=== PATIENT | female | born 1975 | race Caucasian/White ===

== ENCOUNTER 2020-03-15 11:54 | Emergency (ER) | payer OTHER, SELFPAY | END 2020-03-15 12:15 | disposition left against medical advice (07) | LOC: EXPCOLL 12:10 | PROVIDERS: PCP Family Medicine | DX: Z53.21 Procedure and treatment not carried out due to patient leaving prior to being seen by health care provider (principal) | CPT/HCPCS: 99199 ==

== ENCOUNTER 2020-03-15 12:28 | Emergency (ER) | payer OTHER, SELFPAY ==
--- NOTE | ~2020-03-15 | CT_ITS ---
EXAMINATION: CT abdomen pelvis wo con DATE: 03/15/2020 13:02 INDICATION: Left flank pain TECHNIQUE: Computed tomography (CT) of the left was performed without intravenous contrast. The dose- length product (DLP) was 559.02 mGy-cm. Automated exposure control and iterative reconstruction techn ique were employed. COMPARISON: None FINDINGS: The lung bases are clear. The heart size is normal. There is a small sliding hiatal hernia. The liver, spleen, pancreas, gallbladder, and adrenal glands are normal. There is a 5 mm stone in th e proximal left ureter which causes mild left hydroureteronephrosis. A 3 mm nonobstructing stone is p resent in the right kidney. No pathologically enlarged abdominal or pelvic lymph nodes are identified . There is no free intraperitoneal gas or evidence of bowel obstruction. There is calcified atheroscl erosis of the aorta and many of the other arteries. The appendix is normal. IMPRESSION: 1. 5 mm stone in the proximal left ureter causing mild left hydroureteronephrosis. 2. Nonobstructing right nephrolithiasis. Reviewed, dictated and finalized at location A. IMPRESSION: 1. 5 mm stone in the proximal left ureter causing mild left hydroureteronephros is. 2. Nonobstructing right nephrolithiasis.
--- NOTE | ~2020-03-15 | XR_ITS ---
EXAMINATION: XR abdomen/kub 1V INDICATION: Left flank pain TECHNIQUE: Supine views of the abdomen were obtained on 2 radiographs. COMPARISON: None FINDINGS: A 7 mm stone projects between the left L3 and L4 transverse processes. The bowel gas patter n is normal. IMPRESSION: 1. 7 mm left proximal ureteral stone corresponding to the CT finding. Reviewed, dictated and finalized at location A.
[2020-03-15 12:59] LABS: Basophils Absolute Auto 0.1 K/mm3 (0.0-0.1); Basophils Percent Auto 0.8 % (0.2-1.2); Eosinophils Absolute Auto 0.1 K/mm3 (0-0.3); Eosinophils Percent Auto 1.1 % (0-4.4); Hematocrit 44.3 % (37.0-47.0); Hemoglobin 15.3 g/dL (12.0-15.0); Immature Granulocyte Absolute 0.04 K/mm3 (0.00-0.031); Immature Granulocyte Percent A 0.3 % (0-0.5); Lymphocytes Absolute Auto 2.43 K/mm3 (0.9-3.2); Lymphocytes Percent Auto 18.9 % (18.3-44.2); Mean Corpuscular HGB Conc 34.5 g/dl (32-36); Mean Corpuscular Volume 89.9 fl (80-100); Mean Platelet Volume 9.9 fl (7.4-10.4); Monocytes Absolute Auto 0.6 K/mm3 (0.1-0.6); Monocytes Percent Auto 4.6 % (2.6-8.5); Neutrophils Absolute Auto 9.6 K/mm3 (1.3-6.7); Neutrophils Percent Auto 74.3 % (45.5-73.1); Platelet Count Result 296 k/mm3 (150-375); Red Blood Count 4.93 M/mm3 (4.2-5.4); Red Cell Distribution Width 13.9 % (11.5-14.5); White Blood Count 12.9 K/mm3 (4.5-10.0)
[2020-03-15 13:11] LABS: Alanine Aminotransferase 26 U/L (4-35); Albumin Level 4.7 g/dL (3.5-5.1); Alkaline Phosphatase 67 U/L (38-126); Aspartate Amino Transferase 30 U/L (14-36); Bilirubin,Total 0.4 mg/dL (0.2-1.3); Blood Urea Nitrogen 14 mg/dL (7-17); Calcium 9.5 mg/dL (8.4-10.2); Carbon Dioxide 21 mmol/L (22-30); Chloride 107 mmol/L (98-107); Estimated Glomerular Filt Rate > 60; Glucose 115 mg/dL (65-105); Lipase 73 U/L (23-300); Potassium 3.8 mmol/L (3.4-5.0); Sodium 136 mmol/L (137-145)
[2020-03-15] MEDS: FAMOTIDINE 20 MG/2 ML VIAL IV PUSH (13:18)
[2020-03-15] MEDS: ONDANSETRON INJ 4 MG/2 ML VIAL IV PUSH (13:18)
[2020-03-15] MEDS: SODIUM CHLORIDE 0.9% IV 1,000 ML 999 ML IV CONT (13:19)
[2020-03-15 13:45] LABS: Add Urine Microscopic? YES; Appearance Urine Cloudy (Clear); Bacteria Urine Trace /hpf; Bilirubin Urine Negative (Negative); Blood Urine 1+ (Negative); Color Urine Yellow (Yellow); Glucose Urine UA Negative (Negative); Ketones Urine Trace mg/dL (Negative); Leukocyte Esterase Ur Negative LEU/UL (Negative); Mucus Urine Few /lpf; Nitrate Urine Negative (Negative); Protein Urine 1+ mg/dL (Negative); RBC Urine 21-50 /hpf (0-2); Specific Grav Ur 1.023 (1.001-1.035); Squamous Epithelial Cell Urine Many /hpf (Few); Urobilinogen Urine Negative mg/dL (<2.0)
--- NOTE | 2020-03-15 14:40 | ED.ABDPAIN ---
HPI - Abdominal Pain General Chief Complaint: Abdominal Pain <Teodoro Garvin AlekseySHERRON - Last Filed: 03/15/20 14:42> Stated Complaint: ABD Pain, Nausea <Teodoro Garvin AlekseySHERRON Last Filed: 03/15/20 14:42> Time Seen by Provider: 03/15/20 12:31 <Teodoro Garvin AlekseySHERRON Last Filed: 03/15/20 14:42> Source: patient <Teodoro RyderSHERRON Last Filed: 03/15/20 14:42> Mode of arrival: ambulatory <Teodoro RyderSHERRON Geovanni Last Filed: 03/15/20 14:42> Limitations: no limitations <Teodoro Garvin AlekseySHERRON Geovanni Last Filed: 03/15/20 14:42> History of Present Illness HPI narrative: Patient is a 44-year-old female who presents to emergency department for evaluation of left-sided flank pain that intensified this morning as a sharp stabbing pain in the left upper abdomen patient has been having some mild discomfort over the week saw her primary care and was told that she may have a kidney stone and was placed on Augmentin for possible urinary tract infection. Patient on arrival notes that this morning the pain intensified with associated nausea chills. Patient denies similar occurrence in the past. <Teodoro Garvin AlekseySHERRON Last Filed: 03/15/20 14:42> Related Data Allergies/Adverse Reactions: Allergies Allergy/AdvReac Type Severity Reaction Status Date / Time hydrocodone Allergy Severe Nausea and Verified 03/15/20 12:13 Vomiting codeine Allergy Unknown Rash Verified 03/15/20 12:13 <Teodoro Ryder PA-C - Last Filed: 03/15/20 14:42> Review of Systems Review of Systems: All systems reviewed & are unremarkable except as noted in HPI and below <SHERRON Ramirez Last Filed: 03/15/20 14:42> PMF Family History Family History: Family History Mother Diabetes mellitus Depression Grandparent Family history of malignant neoplasm of breast <SHERRON Ramirez Last Filed: 03/15/20 14:42> Social History Social History: Social History Smoking status: Light tobacco smoker Alcohol intake: current <SHERRON Ramirez Last Filed: 03/15/20 14:42> Exam Narrative: Exam Narrative: GENERAL: Well-appearing, well-nourished, and in acute pain HEAD: Normocephalic, atraumatic. EYES: PERRLA and EOMI. ENT: Nares clear, no rhinorrhea or epistaxis. Mucous membranes moist. CHEST: Clear to auscultation. No respiratory distress. No wheezes rales or rhonchi HEART: Regular rate and rhythm. No murmur heard. Normal peripheral pulses. ABDOMEN: Soft, left-sided abdominal tenderness, nondistended EXTREMITIES: Normal range of motion. No edema. SKIN: Warm, dry, no rash. NEURO: No focal deficits. Alert and oriented x3. Cranial nerves II through XII grossly intact PSYCH: Normal mood and affect. <SHERRON Ramirez Last Filed: 03/15/20 14:42> Course Course Emergency Course: Patient with urolithiasis in the room at this time in no distress aware of discussion and recommendation by urology <SHERRON Ramirez Last Filed: 03/15/20 14:42> Consultations Consultation #1: Patient to be discharged after being evaluated by urology in the emergency department to be set up for lithotripsy is felt appropriate for discharge home with medications <SHERRON Ramirez Last Filed: 03/15/20 14:42> Date: 03/15/20 <SHERRON Ramirez Last Filed: 03/15/20 14:42> Time: 14:41 <SHERRON Ramirez Last Filed: 03/15/20 14:42> MDM - Abdominal Pain MDM Narrative Medical decision making narrative: Patient with urolithiasis in the room in no distress aware of case findings treatment plan and diagnosis agreeing to follow with urology was evaluated by urology in the emergency department <SHERRON Ramirez Last Filed: 03/15/20 14:42> Lab Data Result diagrams: : 03/15/20 12:53 03/15/20 12:53 <Teodoro
--- NOTE | 2020-03-15 15:07 | WPDURCON ---
Assessment and Plan Assessment and plan (1) Left ureteral stone: Code(s): N20.1 - Calculus of ureter Status: Acute Assessment and Plan: 1. Partially obstructing, densely calcified 5 mm stone at left mid-ureter (L2-L3). 2. Will arrange left ESWL. Urology Consult Note HPI Date Seen: 03/15/20 Requesting Physician: KINGS Garvin Primary Care Provider: Fifi Estevez MD Consult Narrative Reason for consult: Left ureteral stone Narrative: Amanda Vogel is a 44 year old female without prior urological history and without prior history of urolithiasis, who presents to the ER with a 7 day history of intermittent left flank pain. This is an intermittently sharp, moderately severe pain can be associated with nausea and vomiting. She denies fevers chills or gross hematuria. Renal CT to be in a reveals a partially obstructing, densely calcified 5 mm left mid-ureteral stone which is easily identifiable on KUB at L2-L3. Review of Systems Cardiovascular: Cardiovascular: Denies chest pain, Denies lightheadedness, Denies palpitations and Denies dyspnea Respiratory: Respiratory: Denies dyspnea Gastrointestinal: Gastrointestinal: Denies diarrhea, Denies nausea and Denies vomiting Genitourinary: Genitourinary: Denies hematuria and Denies dysuria Endocrine: Endocrine: Denies palpitations PMFSH Family History Family History Mother Diabetes mellitus Depression Grandparent Family history of malignant neoplasm of breast Social History Social History Smoking status: Light tobacco smoker Alcohol intake: current Meds Home Medications and Allergies Home Medications Medication Instructions Recorded Confirmed Type amoxicillin 875 mg-potassium 1 tablet PO BID #20 tablet 03/06/20 Rx clavulanate 125 mg tablet ondansetron HCl [Zofran] 4 mg PO Q8H #14 tablet 03/15/20 Rx oxycodone-acetaminophen 1 tablet PO Q6H PRN #14 tablet 03/15/20 Rx tamsulosin [Flomax] 0.4 mg PO DAILY #30 cap 03/15/20 Rx Allergies Allergy/AdvReac Type Severity Reaction Status Date / Time hydrocodone Allergy Severe Nausea and Verified 03/15/20 12:13 Vomiting codeine Allergy Unknown Rash Verified 03/15/20 12:13 Exam Const: General: healthy appearing, comfortable, no acute distress and well developed; No confusion Nutritional Appearance: well nourished Orientation/consciousness: patient oriented x3 and No confusion HENMT: Head: normocephalic and atraumatic Ears: external ears normal Face and sinus: normal facial exam Mouth: Yes lip normal Teeth and gingiva: dentition normal Eyes: General: appearance normal, both eyes and all related structures Alignment and Position: alignment normal Eyelids: eyelids normal Cornea: corneas normal Pupils: Equal, round and reactive pupils present EOM: EOMs intact bilaterally Neck: Neck: normal visual inspection, full ROM and no JVD Chest: Chest palpation & inspection: normal inspection of the chest Resp: Effort & Inspection: normal respiratory effort and no use of accessory muscles Auscultation: clear to auscultation bilaterally Cardio: Jugular venous distension: no JVD Rate: regular rate Rhythm: regular rhythm GI: Inspection: normal to inspection GI Palp: No abdominal tenderness, No Guarding due to palpation present (GI) and No Rebound tenderness present Auscultation: normal bowel sounds : General: Yes bladder normal to palpation and No CVA tenderness Bimanual exam- vagina & uterus: bladder normal to palpation Back/Spine/Pelvis: Back: No CVA tenderness Skin: General skin exam: normal color and no rashes or lesions noted Neuro: General: patient oriented x3, no focal motor deficits and No confusion Cranial nerves: Yes Equal, round and reactive pupils present Speech: normal speech Extrem: General: normal to inspection, no cyanosis and no edema Psyc
== END 2020-03-15 15:04 | disposition home or self-care (01) ==
PROVIDERS: Emergency Medicine Emergency Medical Services; Emergency Provider Emergency Medicine; PCP Family Medicine
DX: N13.2 Hydronephrosis with renal and ureteral calculous obstruction (principal); R10.9 Unspecified abdominal pain; F17.200 Nicotine dependence, unspecified, uncomplicated
CPT/HCPCS: 36415; 74018; 74176; 80053; 81001; 81025; 83690; 85025; 87086; 96361; 96374; 96375; 99284; J0131; J2405; J3360; J7030

== ENCOUNTER 2020-03-21 00:34 | Outpatient (CLI) | payer OTHER, SELFPAY ==
[2020-03-21 17:43] LABS: SARS-CoV-2 RNA PCR Negative
== END 2020-03-21 00:35 | disposition home or self-care (01) ==
LOC: ANHCOVIDDT 00:34
PROVIDERS: PCP Family Medicine; Visit Provider Urology
DX: Z01.818 Encounter for other preprocedural examination (principal); Z11.59 Encounter for screening for other viral diseases
CPT/HCPCS: 87635; C9803; U0003

== ENCOUNTER 2020-03-21 10:45 | Outpatient (CLI) | payer OTHER, SELFPAY ==
--- NOTE | 2020-03-21 10:49 | ECG_ITS ---
Measurements Intervals [place] Rate: 69 P: 54 MO: 139 QRS: 51 QRSD: 90 T: 54 QT: 340 QTc: 366 Interpretive Statements SINUS RHYTHM DELAYED PRECORDIAL R/S TRANSITION BASELINE ARTIFACT- I, III, AVR, AVL, AVF BORDERLINE ECG Electronically Signed On 03-21-2020 12:38:26 CDT by Bhanu Camarillo D.O.
[2020-03-21 11:50] LABS: INR 0.9; Prothrombin Time 11.4 Seconds (11.1-14.7)
[2020-03-21 11:51] LABS: Partial Thromboplastin Time 28.6 SECONDS (22.3-36.8)
== END 2020-03-21 10:46 | disposition home or self-care (01) ==
LOC: ANHSURGERY 10:49
PROVIDERS: PCP Family Medicine; Visit Provider Urology
DX: Z01.818 Encounter for other preprocedural examination (principal); Z72.0 Tobacco use; N20.1 Calculus of ureter
CPT/HCPCS: 36415; 85610; 85730; 93005

== ENCOUNTER 2020-03-23 01:12 | Day surgery (SDC) | payer OTHER, SELFPAY ==
[2020-03-19 14:17] VITALS: BMI 29.2
[2020-03-23] VITALS (11 sets, daily range): BP systolic 112–131; BP diastolic 55–78; PULSE 54–65; RESP 12–16; TEMP 36.1–36.9; O2SAT 99–100
--- NOTE | ~2020-03-23 | XR_ITS ---
EXAMINATION: XR abdomen/kub 1V DATE: 03/23/2020 09:07 INDICATION: Left ureteral stone. TECHNIQUE: A supine view of the abdomen on 2 radiographs was obtained. COMPARISON: CT abdomen and pelvis 03/15/2020 FINDINGS: There is a 5 mm stone in proximal left ureter. There are no dilated loops of bowel. IMPRESSION: 1. 5 mm stone in proximal left ureter. Reviewed, dictated and finalized at location A.
--- NOTE | 2020-03-23 06:59 | WPDHPUPDATE1 ---
History and Physical Update Update Date/Time: 03/23/20 06:59 History and Physical has been reviewed, including an updated exam of the patient. There are NO changes in the patient's condition. Risks, benefits, and alternatives have been discussed and questions answered. Patient agrees to proceed with procedure.
[2020-03-23] MEDS: LACTATED RINGERS 1,000 ML 30 ML IV CONT ×2 (09:40→11:36)
--- NOTE | 2020-03-23 10:17 | WPDANESEPPF ---
Anes - Initial Pre Proc Eval Procedure: Operation Date: 03/23/20 10:30 Proposed Procedures p Left Ureteral Extracorporeal Shock Wave Lithotripsy - Barrera York MD Date/Time: 03/23/20 10:17 Surgeon: Barrera York MD Pre Op Diagnosis: left ureteral stone Patient Data Age: 45 Gender: F Height: 5 ft 7 in Weight: 85.7 kg Allergies Allergy/AdvReac Type Severity Reaction Status Date / Time hydrocodone Allergy Severe Itching, Verified 03/23/20 09:12 Nausea and Vomiting codeine Allergy Unknown Itching, Verified 03/23/20 09:12 Rash Home Medications Medication Instructions Recorded Confirmed Type amoxicillin 875 mg-potassium 1 tablet PO BID #20 tablet 03/06/20 03/23/20 Rx clavulanate 125 mg tablet oxycodone-acetaminophen 1 tablet PO Q6H PRN #14 tablet 03/15/20 03/23/20 Rx tamsulosin [Flomax] 0.4 mg PO DAILY #30 cap 03/15/20 03/23/20 Rx ondansetron HCl [Zofran] 4 mg PO Q8H PRN 03/19/20 03/19/20 History Patient hx anesthesia problems: none Family hx anesthesia problems: none PMFSH Family History Family History Mother Diabetes mellitus Depression Grandparent Family history of malignant neoplasm of breast Social History Social History Smoking status: Light tobacco smoker Alcohol intake: current Anes - Eval Final PreProcedure Day of Procedure 03/23/20 10:17 Patient weight: overweight Heart: regular rate and rhythm Lungs: decreased breath sounds Airway: Mallampati scale class II Neurological: alert and oriented Last oral intake: >/= 8 hours ASA classification: III Emergent: no Anesthetic plan: proceed Anesthesia type and monitoring: general LMA and standard monitoring Informed Consent: The patient's anesthetic plan and its attendant risks and benefits were discussed with the patient/family/POA. Questions were solicited and answers provided to the satisfaction of the patient/family/POA.
[2020-03-23] MEDS: ceFAZolin 2 GM/D5W 50 ML 2 GM/50 ML BAG IVPB (10:48)
--- NOTE | 2020-03-23 11:01 | PM.PROC ---
Procedure Note - Detailed Date of procedure: 03/23/20 Pre-op diagnosis: left ureteral stone Post-op diagnosis: same Procedure performed: Left ESWL Description of procedure: The patient was brought to the operative suite where she was placed in the supine position on the [facility] lithotripsy table. The focal point of the lithotripter was placed at a 5mm left mid-ureteral calculus. A total of 2500 shocks were delivered at a power setting of . There appeared to be good fragmentation of the stone. The patient tolerated the procedure well and was taken to the recovery room in good condition. Anesthesia: GLMA Surgeon: Barrera York MD Flight Security Specialist: None Estimated blood loss (mL): 0 Drains: No Packing: No Pathology: none sent Complications: No immediate complications Condition: stable Disposition: PACU
[2020-03-23] MEDS: KETOROLAC 30 MG/ML VIAL (*BKC) IV PUSH (11:27)
[2020-03-23] MEDS: ONDANSETRON INJ 4 MG/2 ML VIAL IV PUSH (12:14)
[2020-03-23] MEDS: SCOPOLAMINE 1.5 MG PATCH TRANSDERM (12:34)
== END 2020-03-23 13:51 | disposition home or self-care (01) ==
PROVIDERS: PCP Family Medicine; Visit Provider Urology
PROC: (CPT 50590; principal; 2020-03-23 10:30)
DX: N20.1 Calculus of ureter (principal); Z72.0 Tobacco use
CPT/HCPCS: 50590; 74018; A9270; J0690; J1200; J1885; J2405; J2704; J3010; J7030; J7120

== ENCOUNTER 2020-04-03 13:49 | Outpatient (CLI) | payer OTHER, SELFPAY ==
--- NOTE | ~2020-04-03 | XR_ITS ---
EXAMINATION: XR abdomen/kub 1V DATE: 04/03/2020 14:15 INDICATION: 10 days post left lithotripsy. TECHNIQUE: A supine view of the abdomen on 2 radiographs was obtained. COMPARISON: 03/23/2020 FINDINGS: A 5 mm stone previously seen in the proximal left ureter has advanced now to the mid left ureter proj ecting over the left sacral ala. No other suspicious calcific a cyst is identified. No dilated loops of bowel to suggest obstruction. Lung bases are clear with no pleural effusion. Heart size is normal. Transitional lumbosacral segment. IMPRESSION: 1. Interval advancement of a 5 mm stone now in the mid left ureter. Reviewed, dictated and finalized at location A.
== END 2020-04-03 13:50 | disposition home or self-care (01) ==
PROVIDERS: PCP Family Medicine; Visit Provider Urology
DX: Z09 Encounter for follow-up examination after completed treatment for conditions other than malignant neoplasm (principal); N20.1 Calculus of ureter
CPT/HCPCS: 74018

== ENCOUNTER 2020-04-13 14:58 | Outpatient (CLI) | payer OTHER, SELFPAY ==
--- NOTE | 2020-04-15 10:34 | WPDPFTINT ---
PFT Interpretation PFT Interpretation: This PFT met all criteria for ATS standards and reproducibility FEV/FVC post bronchodilator 66% of predicted FEV1 94% or 2.70 liters FVC 109% or 4.08 liters TLC 86% or 4.81 liters RV 37% RV/TLC 15% DLCO 54% or 13.7 liters when adjusted for alveolar volume but not adjusted for hemoglobin Flow volume loops showed some expiratory coving Impression: Mild airflow obstruction with moderately decreased diffusion capacity. This pattern may correlate with COPD. Clinical correlation is advised.
--- NOTE | 2020-04-15 10:38 | WPDPFTINT ---
PFT Interpretation PFT Interpretation: This PFT met all criteria for ATS standards and reproducibility FEV/FVC post bronchodilator 85% of predicted FEV1 106% FVC 95% TLC 96% RV 95% RV/TLC 36% DLCO 100% when adjusted for alveolar volume but not adjusted for hemoglobin Flow volume loops were normal NiOX was 22 ppb which is normal. Impression: Normal PFT and normal NiOx study. Clinical correlation is advised.
== END 2020-04-13 14:59 | disposition home or self-care (01) ==
LOC: ANHPFT 14:59
PROVIDERS: PCP Family Medicine; Visit Provider Family Medicine
DX: J45.20 Mild intermittent asthma, uncomplicated (principal)
CPT/HCPCS: 94060; 94726; 94729

== ENCOUNTER → 2021-01-28 07:25 | Outpatient (CLI) | payer BC, SELFPAY ==
--- NOTE | ~2021-01-28 | MM_ITS ---
EXAMINATION: MM screening brent BI w xiomara HISTORY: Screening TECHNIQUE: Craniocaudal and mediolateral oblique 3-D tomosynthesis images were obtained and synthetic 2-D images were generated. CAD analysis was submitted and interpreted. COMPARISON: Comparison to multiple prior studies sequentially, with oldest reviewed study dated 2013. BREAST PARENCHYMAL COMPOSITION: There are scattered areas of fibroglandular density.. FINDINGS: There are changes of bilateral breast left surgery. There is a new focal asymmetry adjacent to the chest wall of the right breast medially on CC view. This is not identified on MLO view. There is a focal asymmetry in the lower inner quadrant of the right breast with associated tissue marker, consistent with site of previous benign biopsy. IMPRESSION: 1. New focal asymmetry medial aspect of the right breast or the chest wall on CC view. 2. Additional mammographic views and possible breast ultrasound are recommended. BI-RADS Category 0: Incomplete: Needs additional imaging evaluation. Reviewed, dictated and finalized at location A. IMPRESSION: 1. New focal asymmetry medial aspect of the right breast or the chest wall on C C view. 2. Additional mammographic views and possible breast ultrasound are recommended . BI-RADS Category 0: Incomplete: Needs additional imaging evaluation.
== END ==
PROVIDERS: PCP Family Medicine; Visit Provider Family Medicine
DX: Z12.31 Encounter for screening mammogram for malignant neoplasm of breast (principal); R92.8 Other abnormal and inconclusive findings on diagnostic imaging of breast
CPT/HCPCS: 77063; 77067

== ENCOUNTER → 2021-02-19 09:22 | Outpatient (CLI) | payer BC, SELFPAY ==
--- NOTE | ~2021-02-19 | MMUS_ITS ---
EXAMINATION: MM diagnostic mammo unilat RT, US breast RT limited HISTORY: Follow-up right breast asymmetry TECHNIQUE: Additional 3-D tomosynthesis images of the right breast were performed and synthetic 2-D i mages were generated. CAD analysis was submitted and interpreted. High resolution Limited right breas t ultrasound was performed. COMPARISON: 01/28/2021 BREAST PARENCHYMAL COMPOSITION: The breasts are heterogenously dense, which may obscure small masses. FINDINGS: MAMMOGRAPHIC FINDINGS: There is an unchanged focal mass in the upper inner quadrant of the right breast with associated tiss ue marker, previously biopsy proven benign. There is a persistent focal asymmetry medial aspect of th e right breast at the chest wall seen on CC view only, most likely sternalis muscle. ULTRASOUND: Limited right breast ultrasound: At 4:00, 9 cm from the nipple, there is a 5 mm intramammary lymph no de. At 3:00, 10 cm from the nipple, there is an oval anechoic mass measuring 4 mm without posterior f eatures or internal vascularity, compatible with a cyst. No suspicious sonographic masses to suggest malignancy IMPRESSION: 1. Probable benign focal asymmetry medial aspect of the right breast, most likely sternalis muscle. N o definite sonographic correlate. 2. Recommend 6 month follow-up diagnostic right mammogram BI-RADS category 3, probably benign findings. Reviewed, dictated and finalized at location A. IMPRESSION: 1. Probable benign focal asymmetry medial aspect of the right breast, most like ly sternalis muscle. No definite sonographic correlate. 2. Recommend 6 month follow-up diagnostic right mammogram BI-RADS category 3, probably benign findings.
== END ==
PROVIDERS: PCP Family Medicine; Visit Provider Family Medicine
DX: N63.15 Unspecified lump in the right breast, overlapping quadrants (principal)
CPT/HCPCS: 76642; 77065

== ENCOUNTER → 2021-08-21 02:43 | Outpatient (CLI) | payer BC, SELFPAY ==
[2021-08-21 17:30] LABS: SARS-CoV-2 RNA PCR Negative
== END ==
PROVIDERS: PCP Family Medicine; Visit Provider Family Medicine
DX: R09.81 Nasal congestion (principal); R05.9 Cough, unspecified; R07.89 Other chest pain
CPT/HCPCS: C9803; U0003; U0005

== ENCOUNTER → 2021-10-23 07:45 | Outpatient (CLI) | payer BC, SELFPAY ==
--- NOTE | ~2021-10-23 | MM_ITS ---
EXAMINATION: MM diagnostic brent RT w xiomara HISTORY: Six-month follow-up for probably benign right breast asymmetry TECHNIQUE: Craniocaudal, mediolateral, and mediolateral oblique 3-D tomosynthesis images of the right breast were performed and synthetic 2-D images were generated. Spot compression views also obtained. CAD analysis was submitted and interpreted. COMPARISON: 02/19/2021, 01/28/2021, 08/06/2019, 02/16/2018, 06/29/2014 FINDINGS: There is no evidence of suspicious mass, calcification, or architectural distortion to sug gest malignancy. There has been no suspicious interval change. The asymmetry in the far posterior th ird of the inner breast on the craniocaudal view has an appearance similar to prior mammograms. IMPRESSION: 1. No mammographic evidence of malignancy. 2. Routine screening mammography is recommended, due in six months. BI-RADS Category 2: Benign finding(s). Reviewed, dictated and finalized at location A. ING COLLECTIONS SPECIALIST
== END ==
PROVIDERS: PCP Family Medicine; Visit Provider Family Medicine
DX: R92.8 Other abnormal and inconclusive findings on diagnostic imaging of breast (principal)
CPT/HCPCS: 77061; 77065; G0279

== ENCOUNTER → 2022-06-25 08:33 | Outpatient (CLI) | payer BC, SELFPAY ==
--- NOTE | ~2022-06-25 | XR_ITS ---
EXAMINATION: XR knee LT min 4V DATE: 06/25/2022 08:54 INDICATION: Left knee pain TECHNIQUE: Four views of the left knee were obtained. COMPARISON: None. FINDINGS: Alignment is normal. No fracture or osteochondral lesion. There is mild tricompartmental os teoarthritis characterized by tiny marginal osteophytes. No joint effusion/synovitis. Soft tissues a re unremarkable. IMPRESSION: 1. No acute osseous abnormality. Reviewed, dictated and finalized at location B.
--- NOTE | ~2022-06-25 | XR_ITS ---
EXAMINATION: XR knee RT min 4V DATE: 06/25/2022 08:54 INDICATION: Right knee pain TECHNIQUE: Four views of the right knee were obtained. COMPARISON: None. FINDINGS: Alignment is normal. No fracture or osteochondral lesion. There is mild tricompartmental os teoarthritis characterized by tiny marginal osteophytes. There is a small knee joint effusion. Soft t issues are unremarkable. IMPRESSION: 1. Small knee joint effusion. Reviewed, dictated and finalized at location B.
--- NOTE | ~2022-06-25 | XR_ITS ---
EXAMINATION: XR chest 2V DATE: 06/25/2022 08:54 INDICATION: Cough, unspecified TECHNIQUE: PA and lateral views of the chest are obtained. COMPARISON: 04/08/2017 FINDINGS: The lungs are free of acute opacities. No pleural effusion or pneumothorax. The cardiomedia stinal silhouette is normal. The visualized bones and soft tissues are unremarkable. IMPRESSION: 1. No acute cardiopulmonary abnormality. Reviewed, dictated and finalized at location B.
== END ==
PROVIDERS: PCP Family Medicine; Visit Provider Family Medicine
DX: M22.2X1 Patellofemoral disorders, right knee (principal); M22.2X2 Patellofemoral disorders, left knee; R05.9 Cough, unspecified; M25.461 Effusion, right knee
CPT/HCPCS: 71046; 73564

== ENCOUNTER → 2023-03-11 15:36 | Outpatient (CLI) | payer BC, SELFPAY ==
--- NOTE | ~2023-03-11 | MM_ITS ---
EXAMINATION: MM screening brent BI w xiomara HISTORY: Screening mammogram TECHNIQUE: Craniocaudal and mediolateral oblique 3-D tomosynthesis images were obtained and synthetic 2-D images were generated. CAD analysis was submitted and interpreted. COMPARISON: 10/23/2021, 02/19/2021, 01/28/2021, 09/06/2019 BREAST PARENCHYMAL COMPOSITION: The breasts are heterogeneously dense, which may obscure small masses . FINDINGS: There is a stable right breast mass with biopsy marker. No suspicious mass, calcification, or architectural distortion are identified in either breast to suggest malignancy. There has been no suspicious interval change. IMPRESSION: 1. No mammographic evidence of malignancy. 2. Recommend routine screening mammography in one year. BI-RADS Category 2: Benign finding(s). Reviewed, dictated and finalized at location A.
== END ==
PROVIDERS: PCP Family Medicine; Visit Provider Family Medicine
DX: Z12.31 Encounter for screening mammogram for malignant neoplasm of breast (principal)
CPT/HCPCS: 77063; 77067

== ENCOUNTER → 2023-04-24 08:31 | Outpatient (CLI) | payer BC, SELFPAY ==
--- NOTE | ~2023-04-24 | CT_ITS ---
CT Scan of the Chest without Contrast: Clinical Indication: Smoker, cough Technique: Contiguous sections were acquired throughout the chest without intravenous contrast. Dose reduction technique was used on this scan by utilizing automated exposure control and iterative recon struction technique. The dose-length product (DLP) was 88.54 mGy-cm. Findings: There is no evidence of any significant mediastinal, hilar or axillary lymphadenopathy. The mediastin al soft tissues appear normal. There is no evidence of pleural or pericardial effusion. The lungs are clear. No pulmonary nodules or infiltrates are noted. Images through the upper abdomen reveal no abnormalities. Impression: No significant abnormalities seen. Reviewed, dictated and finalized at location . Impression: No significant abnormalities seen.
== END ==
PROVIDERS: PCP Family Medicine; Visit Provider Family Medicine
DX: R05.3 Chronic cough (principal); F17.210 Nicotine dependence, cigarettes, uncomplicated
CPT/HCPCS: 71250

== ENCOUNTER 2023-05-16 14:32 | Emergency (ER) | payer BC, SELFPAY ==
[2023-05-16 14:45] VITALS: BP 110/63; PULSE 77; RESP 16; TEMP 36.6; O2SAT 99
[2023-05-16 15:10] VITALS: BP 110/63; PULSE 77; RESP 16; TEMP 36.6; O2SAT 99
[2023-05-16] MEDS: TETANUS,DIPHTHERIA,AC PERTUSSIS ADULT (0.5 ML) BOOSTRIX IM (16:20)
--- NOTE | 2023-05-16 17:21 | ED.GENADULT ---
HPI - General Adult General Chief complaint: Extremity Injury, Upper Stated complaint: left finger injured Source: patient Mode of arrival: ambulatory Limitations: no limitations History of Present Illness HPI narrative: patient presents for evaluation of a laceration to left index finger. She cut herself with a blade when trying to place it back in the protective cover just AC[employer]EM[employer] COMPUTING DIRECT[employer]. She has some mild pain in the affected digit. No fever, chills, nausea, vomiting, purulence from the affected area. No loss of ROM. No paresthesias. She is not diabetic. She is right hand dominant. She smokes 1 ppd. Date of last tetanus unknown. Related Data Allergies Allergy/AdvReac Type Severity Reaction Status Date / Time hydrocodone Allergy Severe Itching, Verified 05/16/23 14:37 Nausea and Vomiting codeine Allergy Unknown Itching, Verified 05/16/23 14:37 Rash Review of Systems Review of Systems: CONSTITUTIONAL: Denies fever, chills, or sweats. EYES: Denies visual changes, redness, or discharge. ENT: Denies rhinorrhea, congestion, sore throat, or otalgia. CARDIOVASCULAR: Denies chest pain, palpitations, or edema. RESPIRATORY: Denies cough or dyspnea. GASTROINTESTINAL: Denies abdominal pain, nausea, vomiting, or diarrhea. GENITOURINARY: Denies dysuria or hematuria. SKIN: Reports laceration to left index finger. Denies rash or itching. MUSCULOSKELETAL:Reports pain in left index finger. Denies back pain NEUROLOGIC: Denies headache, numbness, dizziness, or weakness. PSYCHIATRIC: Denies anxiety or depression. [facility] Past Medical History Medical History Actinic keratosis Asthma exacerbation Benign mole Left ureteral stone Skin mole Surgical History Surgical History History of bilateral oophorectomy (~02/18/19) History of cosmetic plastic surgery Mommy make over 2014 History of hysterectomy (~02/18/19) Status post laser lithotripsy of ureteral calculus Family History Family History Mother Diabetes mellitus Depression Grandparent Family history of malignant neoplasm of breast Social History Social History Smoking packs per day: 1 Smoking cigarettes per day: 20.0 Smoking status: Current every day smoker Second hand tobacco smoke exposure: No Alcohol intake: current Drinks per week: 6 Substance use: current Substance use type: marijuana Living arrangements: with family Occupation/Education: occupation Gender identity (if verbalized by the patient): Female Spiritual care concerns: No Agree to blood products: Yes Exam Narrative: GENERAL: Well-appearing, well-nourished, and in no acute distress. HEAD: Normocephalic, atraumatic. EYES: PERRLA and EOMI. ENT: Nares clear, no rhinorrhea or epistaxis. Mucous membranes moist. Oropharynx without tonsillar hypertrophy exudate or other lesions. Bilateral TMs pearly sanders nonbulging NECK: Supple. No adenopathy or masses. No carotid bruits or JVD CHEST: Clear to auscultation. No respiratory distress. No wheezes rales or rhonchi HEART: Regular rate and rhythm. No murmur heard. Normal peripheral pulses. ABDOMEN: Soft, nontender, nondistended, normal active bowel sounds. EXTREMITIES: Normal range of motion. No edema. SKIN: Approximately 2.5cm linear laceration to left index finger. Wound bed red. Small amount of sanguinous drainage. Warm, dry, no rash. NEURO: No focal deficits. Alert and oriented x3. PSYCH: Normal mood and affect. Course Course Emergency Course: This is a 48-year-old female who presented for evaluation of laceration to left index finger. Wound was clean. Laceration closed with 3 sutures. Patient tolerated well. Updated on tetanus. Provided with finger splint. Follow u
== END 2023-05-16 17:50 | disposition home or self-care (01) ==
PROVIDERS: Emergency Provider Nurse Practitioner; PCP Family Medicine
DX: S61.211A Laceration without foreign body of left index finger without damage to nail, initial encounter (principal); W26.0XXA Contact with knife, initial encounter; Z23 Encounter for immunization; F17.210 Nicotine dependence, cigarettes, uncomplicated; J45.909 Unspecified asthma, uncomplicated
CPT/HCPCS: 12001; 90471; 90715; 99212; G0463

== ENCOUNTER 2023-06-12 09:05 | Outpatient (CLI) | payer BC, SELFPAY ==
--- NOTE | 2023-06-12 15:00 | WPDPFTINT ---
PFT Procedure Performed PFT Procedure Performed Spirometry with Pre/Post Bronchodilator Plethysmography (Lung Vol) Diffusing Cap (DLCO) Flow Vol Loop PFT Interpretation This is a pulmonary function test with pre and post-bronchodilator spirometry, plethysmography and diffusing capacity. The test was performed and results interpreted in accordance with the 2019 and 2005 ATS/ERS Task Force guidelines respectively using the Global Lung Function Initiative-2012 reference equations. Patient demonstrated good effort and cooperation. Reproducibility criteria were met. The quality of the pre bronchodilator spirometry maneuver was Grade A and post bronchodilator spirometry maneuver was Grade A. Findings: Spirometry: There is decreased maximal expiratory airflow at low lung volumes with concave expiratory flow tracing. The contour the inspiratory flow tracing is normal. The pre bronchodilator FVC is 4.33 L, 113% predicted. The pre bronchodilator FEV1 is 2.87 L, 93% predicted. The pre bronchodilator FEV1: FVC ratio 66%. The post bronchodilator FVC is 4.22 L, representing a 3% decrease. The post bronchodilator FEV1 is 2.81 L, representing a 2% decrease. The post bronchodilator FEV1: FVC ratio 67%. Plethysmography: The total lung capacity is 5.57 L, 101% predicted. Functional residual capacity is 2.77 L, 90% predicted. The residual volume is 1.23 L, 65% predicted. Diffusing capacity: The diffusing capacity unadjusted for hemoglobin and carboxyhemoglobin is 13.6, 57% predicted. The diffusing capacity adjusted for alveolar volume is 2.75, 61% predicted. In comparison to previous pulmonary function testing on 04/13/2020 the post bronchodilator FVC is unchanged from 4.08 L to 4.22 L. The post bronchodilator FEV1 is unchanged from 2.70 L to 2.81 L. The total lung capacity is increased from 4.81 L to 5.57 L. The functional residual capacity is increased from 2.15 L to 2.77 L. The residual volume is increased from 0.73 L to 1.23 L. The diffusing capacity unadjusted for hemoglobin and carboxyhemoglobin is unchanged from 13.7 to 13.6. The diffusing capacity adjusted for alveolar volume is unchanged from 3.11 to 2.75 Impression: There is a mild obstructive abnormality with a normal FEV1 and without significant improvement after inhaling a single dose of albuterol. The lung volumes are normal. The diffusing capacity unadjusted for hemoglobin and carboxyhemoglobin is moderately decreased and remains mildly decreased when adjusted for alveolar volume. In comparison to previous pulmonary function testing on 04/13/2020 there has been a greater than anticipated time dependent increase in the total lung capacity, functional residual capacity and residual volume with no significant change in the FVC, FEV1 or diffusing capacity. Clinical correlation is recommended.
== END 2023-06-12 09:06 | disposition home or self-care (01) ==
PROVIDERS: PCP Family Medicine; Visit Provider Physician Assistant
DX: R05.9 Cough, unspecified (principal); R06.00 Dyspnea, unspecified; R94.2 Abnormal results of pulmonary function studies
CPT/HCPCS: 94060; 94726; 94729

== ENCOUNTER 2023-06-15 13:53 | Outpatient (NON) | payer BC, SELFPAY | END 2023-06-15 13:54 | disposition home or self-care (01) | LOC: ANHLAB 06-17 13:55 | PROVIDERS: PCP Family Medicine; Visit Provider Nurse Practitioner | DX: D48.5 Neoplasm of uncertain behavior of skin (principal) | CPT/HCPCS: 88305 ==

== ENCOUNTER 2023-06-29 13:51 | Outpatient (NON) | payer BC, SELFPAY | END 2023-06-29 13:52 | disposition home or self-care (01) | LOC: ANHLAB 13:51 | PROVIDERS: PCP Family Medicine; Visit Provider Nurse Practitioner | DX: C44.92 Squamous cell carcinoma of skin, unspecified (principal) | CPT/HCPCS: 88305; 88331 ==

== ENCOUNTER 2023-07-22 15:00 | Outpatient (CLI) | payer BC, SELFPAY ==
--- NOTE | 2023-07-22 15:14 | ECG_ITS ---
Measurements Intervals [place] Rate: 70 P: 60 IN: 154 QRS: 58 QRSD: 88 T: 62 QT: 351 QTc: 381 Interpretive Statements SINUS RHYTHM NO PREVIOUS ECG AVAILABLE FOR COMPARISON Electronically Signed On 07-22-2023 19:18:12 CDT by Karine Chun M.D.
== END 2023-07-22 15:01 | disposition home or self-care (01) ==
LOC: ANHSURGERY 15:02
PROVIDERS: PCP Family Medicine; Visit Provider Otolaryngology
DX: Z01.810 Encounter for preprocedural cardiovascular examination (principal); F17.210 Nicotine dependence, cigarettes, uncomplicated
CPT/HCPCS: 93005

== ENCOUNTER 2023-07-23 07:00 | Outpatient (NON) | payer BC, SELFPAY | END 2023-07-23 07:01 | disposition home or self-care (01) | PROVIDERS: PCP Family Medicine; Visit Provider Nurse Practitioner | DX: L28.1 Prurigo nodularis (principal); D48.5 Neoplasm of uncertain behavior of skin | CPT/HCPCS: 88305 ==

== ENCOUNTER 2023-07-31 03:12 | Day surgery (SDC) | payer BC, SELFPAY ==
[2023-07-17 12:36] VITALS: BMI 23.5
--- NOTE | 2023-07-17 12:41 | PC.NURSE ---
Report to the Outpatient Waiting Room, entrance under the green pavilion located off [facility], at time _0600_ on date _[id number]_. Planned Procedure Time: _0730_. Time changes happen often and if your time is changed the preop area will call you the afternoon before. - You and your visitor will be asked to self-screen and do not enter if you have any COVID symptoms. - A mask is optional within the hospital at this time. Patients may have clear liquids (water, carbonated beverages, clear teas, apple juice) until 3 hours prior to surgery with a maximum of 20 ounces. - No food from midnight until time of surgery Take the following medications with a SIP of water the morning of surgery: ___Trelegy and if needed Albuterol DO NOT STOP ANY OF YOUR OTHER PRESCRIPTION MEDICATIONS PRIOR TO SURGERY ?EXCEPT THE FOLLOWING Medications to discontinue per physician None Date to take last dose Please no make-up, nail yakut, hairspray, perfume, deodorant, or body powder the day of surgery. No jewelry (including any body piercings) or valuables the day of surgery, leave them at home. Please take a shower or bath the night before, or the morning of, surgery with an antibacterial soap. Wear comfortable, loose fitting clothing. - Jewelry must be removed prior to entering the operating room. Rings and piercings that are not removed may be cut off. - The hospital will not accept responsibility for valuables. - Please leave all valuables, including medications, at home the day of surgery. If you are going home after surgery, a licensed intermodal owner operator truck driver must drive you home. - NO public transportation without another adult if you receive anesthesia. - We recommend that an adult stay with you for 24 hours following discharge. - We also recommend that you do not drive, make important decision, drink alcoholic beverages, or take any drugs that were not prescribed by your health care provider for at least 24 hours after your discharge time. Follow any additional instructions given to you from your surgeon. If you or anyone in your household have experienced Covid symptoms in the past week, please notify your surgeon or the nurse liaison at the phone number below for possible testing. Telephone instructions given to __Patient__and asked if any additional questions and then verbalized understanding. Patient advised to call surgeon office or pre surgery nurse liaison [phone] if any additional questions.
--- NOTE | 2023-07-30 17:29 | PM.IMHP ---
H&P: HPI History of Present Illness Date/Time: 07/30/23 17:29 Chief Complaint: hoarse voice laryngeal polyps vocal cord polyps septal deviation turbinate hypertrophy Narrative: planned procedure Review of Systems Review of Systems: All systems reviewed & are unremarkable except as noted in HPI and below PMFSH Past Medical History Medical History Actinic keratosis Asthma exacerbation Benign mole Left ureteral stone Skin mole Surgical History Surgical History History of bilateral oophorectomy (~02/18/19) History of cosmetic plastic surgery Mommy make over 2014 History of hysterectomy (~02/18/19) Status post laser lithotripsy of ureteral calculus Family History Family History Mother Diabetes mellitus Depression Grandparent Family history of malignant neoplasm of breast Social History Social History Smoking packs per day: 1 Smoking cigarettes per day: 20.0 Years smoked: 30 Smoking pack-years: 30.00 Smoking status: Current every day smoker Second hand tobacco smoke exposure: No Alcohol intake: current Drinks per week: 1 Substance use: current Substance use type: marijuana Living arrangements: with family Occupation/Education: occupation Gender identity (if verbalized by the patient): Female Spiritual care concerns: No Agree to blood products: Yes Meds Home Medications and Allergies Home Medications Medication Instructions Recorded Confirmed Type phentermine 37.5 mg capsule 37.5 mg PO DAILY #30 caps 05/05/23 07/28/23 Rx albuterol sulfate 90 mcg/actuation 1 inh inhalation Q4H PRN shortness 06/15/23 07/28/23 Rx aerosol inhaler (ProAir HFA) of breath or wheezing #8.5 grams mirabegron 25 mg tablet,extended 25 mg PO DAILY #30 tabs 07/21/23 07/28/23 Rx release 24 hr (Myrbetriq) fluticasone propionate 50 2 spray intranasal DAILY #48 grams 07/23/23 07/28/23 Rx mcg/actuation nasal spray,suspension (Flonase Allergy Relief) omeprazole 40 mg capsule,delayed 40 mg PO .q a.m. #90 caps 07/23/23 07/28/23 Rx release fluticasone fur. 100 mcg-umeclid 1 inh inhalation DAILY 90 days 07/27/23 07/28/23 Rx 62.5 mcg-vilant 25 mcg #180 ea inhalat.powder (Trelegy Ellipta) Allergies Allergy/AdvReac Type Severity Reaction Status Date / Time hydrocodone Allergy Severe Itching, Verified 07/28/23 15:25 Nausea and Vomiting codeine Allergy Unknown Itching, Verified 07/28/23 15:25 Rash Exam Narrative: septal deviation turbinate hypertrophy hoarse voice vocal cord polyps Assessment and Plan Assessment and plan (1) Deviated septum: Code(s): J34.2 - Deviated nasal septum Status: Acute Assessment and Plan: plan or direct laryngoscopy excision of vocal cord polyps Microdirect will need microscope. Endoscopic assisted septoplasty turbinate reduction with outfracture bilaterally. Risks were discussed including bleeding need for tracheostomy vocal cord paralysis recurrence of polyps change in voice persistent hoarse voice damage to any structure in the induction and remains anesthesia damage to any structure of the clavicle by myself. CSF leak brain brain damage change in vision total blindness septal perforation failure to resolve symptoms re hypertrophy of turbinates need for further procedures. Postoperative infection and bleeding. (2) Hoarseness: Code(s): R49.0 - Dysphonia Status: Acute (3) Vocal cord polyps: Code(s): J38.1 - Polyp of vocal cord and larynx Status: Acute (4) Hypertrophy of both inferior nasal turbinates: Code(s): J34.3 - Hypertrophy of nasal turbinates Status: Acute
[2023-07-31] VITALS (10 sets, daily range): BP systolic 101–119; BP diastolic 60–74; PULSE 53–78; RESP 10–18; TEMP 36.1; O2SAT 93–100
--- NOTE | 2023-07-31 06:36 | WPDANESEPPF ---
Anes - Initial Pre Proc Eval Procedure: Operation Date: 07/31/23 08:00 Proposed Procedures p Endoscopic Septoplasty - Saul Sapp MD s Bilateral Inferior Turbinectomy with Outfracture - Saul Sapp MD s Microdirect Laryngoscopy, Excision of Vocal Cord Polyps - Saul Sapp MD Date/Time: 07/31/23 06:36 Surgeon: Saul Sapp MD Pre Op Diagnosis: Vocal Cord Polyps, Nasal Septal Deviation Patient Data Age: 48 Gender: F Height: 1.7 m Weight: 68.2 kg Allergies Allergy/AdvReac Type Severity Reaction Status Date / Time hydrocodone Allergy Severe Itching, Verified 07/28/23 15:25 Nausea and Vomiting codeine Allergy Unknown Itching, Verified 07/28/23 15:25 Rash Home Medications Medication Instructions Recorded Confirmed Type phentermine 37.5 mg capsule 37.5 mg PO DAILY #30 caps 05/05/23 07/28/23 Rx albuterol sulfate 90 mcg/actuation 1 inh inhalation Q4H PRN shortness 06/15/23 07/28/23 Rx aerosol inhaler (ProAir HFA) of breath or wheezing #8.5 grams mirabegron 25 mg tablet,extended 25 mg PO DAILY #30 tabs 07/21/23 07/28/23 Rx release 24 hr (Myrbetriq) fluticasone propionate 50 2 spray intranasal DAILY #48 grams 07/23/23 07/28/23 Rx mcg/actuation nasal spray,suspension (Flonase Allergy Relief) omeprazole 40 mg capsule,delayed 40 mg PO .q a.m. #90 caps 07/23/23 07/28/23 Rx release fluticasone fur. 100 mcg-umeclid 1 inh inhalation DAILY 90 days 07/27/23 07/28/23 Rx 62.5 mcg-vilant 25 mcg #180 ea inhalat.powder (Trelegy Ellipta) Patient hx anesthesia problems: none Family hx anesthesia problems: none Results Review: All pre-operative results and documents have been reviewed as part of the pre-operative evaluation. [facility] Past Medical History Medical History Actinic keratosis Asthma exacerbation Benign mole Left ureteral stone Skin mole Surgical History Surgical History History of bilateral oophorectomy (~02/18/19) History of cosmetic plastic surgery Mommy make over 2015 History of hysterectomy (~02/18/19) Status post laser lithotripsy of ureteral calculus Family History Family History Mother Diabetes mellitus Depression Grandparent Family history of malignant neoplasm of breast Social History Social History Smoking packs per day: 1 Smoking cigarettes per day: 20.0 Years smoked: 30 Smoking pack-years: 30.00 Smoking status: Current every day smoker Second hand tobacco smoke exposure: No Alcohol intake: current Drinks per week: 1 Substance use: current Substance use type: marijuana Living arrangements: with family Occupation/Education: occupation Gender identity (if verbalized by the patient): Female Spiritual care concerns: No Agree to blood products: Yes Anes - Eval Final PreProcedure Day of Procedure 07/31/23 06:36 Patient weight: normal Heart: regular rate and rhythm Lungs: clear to auscultation Airway: Mallampati scale class II Neurological: alert and oriented Last oral intake: >/= 8 hours ASA classification: II Emergent: no Anesthetic plan: proceed Anesthesia type and monitoring: general ETT and standard monitoring Results Review: All pre-operative results and documents have been reviewed as part of the pre-operative evaluation. Informed Consent: The patient's anesthetic plan and its attendant risks and benefits were discussed with the patient/family/POA. Questions were solicited and answers provided to the satisfaction of the patient/family/POA.
--- NOTE | 2023-07-31 07:14 | WPDHPUPDATE1 ---
History and Physical Update Update Date/Time: 07/31/23 07:14 History and Physical has been reviewed, including an updated exam of the patient. There are NO changes in the patient's condition. Risks, benefits, and alternatives have been discussed and questions answered. Patient agrees to proceed with procedure.
[2023-07-31] MEDS: ACETAMINOPHEN 500 MG TABLET 1000 MG PO (07:15)
[2023-07-31] MEDS: SCOPOLAMINE 1.5 MG PATCH TRANSDERM (07:34)
[2023-07-31] MEDS: LACTATED RINGERS 1,000 ML 30 ML IV CONT ×2 (07:34→10:20)
[2023-07-31] MEDS: ceFAZolin 2 GM/D5W 50 ML 2 GM/50 ML BAG IVPB (08:25)
[2023-07-31] MEDS: OXYMETAZOLINE HCL 0.05% NAS 15 ML BTL (*BKC) 1 SPRAY NASAL (08:49)
[2023-07-31] MEDS: LIDO 1%/EPINEPHRINE 1:100,000 50 ML VIAL INFILTRATE (08:50)
[2023-07-31] MEDS: MUPIROCIN 2% OINT 22 GM TUBE 1 APPLIC EACH NARE (09:29)
--- NOTE | 2023-07-31 10:49 | W.PM.PROC2 ---
Procedure Note - Detailed Date of Procedure 07/31/23 Pre-op Diagnosis Vocal Cord Polyps, Nasal Septal Deviation turbinate hypertrophy Post-op Diagnosis Same Procedure Performed Endoscopic assisted septoplasty, inferior turbinate reduction with outfracture bilaterally, Microdirect laryngoscopy, excision of vocal cord polyps bilateral Surgeon Saul Sapp MD Anesthesia General Indications See above Findings Vocal cord polyps bilaterally left excised with removal of epithelium as well given redundant epithelium right micro flap matrix suctioned out flap laid back, severe septal deviation to the right straightened excess bleeding from a superior right perforation as well as from artery inferiorly and caudally. Controlled by the end of surgery Description of Procedure Patient identified consent verified preop. Patient brought to the operating. Time-out performed. General anesthesia induced endotracheal tube secured airway. Patient prepped draped positioned procedures confirmed 2nd time-out performed. Maxillary tooth mouth guard placed. Laryngoscope placed. Glottis brought into view. Patient placed in suspension. Left polyp grasped superior base flap made matrix suctioned out copious amounts of redundant epithelium this epithelium was trimmed right superior flap created matrix suctioned out except Presley of epithelium was laid back down. Afrin-soaked pledgets placed for 1 minute then removed. Bleeding was completely acceptable. Patient taken out of suspension laryngoscope removed maxillary tooth mouth guard removed. Bed rotated back. Afrin-soaked pledgets placed transnasally for 5 minutes then removed. 0 degree scope utilized. Total 16 cc 1% lidocaine 1 100,000 parts epinephrine injected the bilateral nasal septum and inferior turbinates. Left-sided [place] incision made. Patient had a right lower and as well as right higher septal deviation. Deviated septum removed after the nasal septal flaps were elevated bilaterally. As removed combination of osteotome Albaro Sorto forceps and Chucho forceps. Bleeding from the right perforation was cauterized with Bovie suction electrocautery setting of 10 with great care to not injure the left-sided flap. Bleeding from the inferior bony removal stopped on its own with pressure with an Afrin-soaked pledget. [place] incision then closed with 3 of 4 interrupted 5 0 fast gut sutures. Turbinates reduced in the submucosal plane bilaterally with the microdebrider 2.5 mm blade. They were then outfractured. Very very good reduction. Cortez splints were then placed and sutured anteriorly using a mattress nylon suture. 3-0. Total blood loss about 15 cc. Patient tolerated the procedure well. There were no complications. Care of the patient was given back to Anesthesiology. I performed all dictated portions of the procedure. Estimated Blood Loss -15.0 Drains No Packing No Pathology Yes Complications No immediate complications Condition Stable Disposition PACU [facility] Billing Surgery - Charge Forward: Surgery Billing
== END 2023-07-31 12:45 | disposition home or self-care (01) ==
PROVIDERS: PCP Family Medicine; Visit Provider Otolaryngology
PROC: (CPT 30520; principal; 2023-07-31 08:00)
PROC: (CPT 30520; 2023-07-31 08:00)
PROC: 0CJS8ZZ Inspection of Larynx, Via Natural or Artificial Opening Endoscopic (ICD-10-PCS; CPT 31575; 2023-07-31 08:00)
DX: J38.1 Polyp of vocal cord and larynx (principal); J34.3 Hypertrophy of nasal turbinates; J34.2 Deviated nasal septum; J45.909 Unspecified asthma, uncomplicated; Z79.51 Long term (current) use of inhaled steroids; F17.210 Nicotine dependence, cigarettes, uncomplicated; F12.90 Cannabis use, unspecified, uncomplicated
CPT/HCPCS: 30520; 30140; 31541; 88305; A9270; J0330; J0690; J1100; J1170; J2250; J2405; J2704; J3010; J7120

== ENCOUNTER 2023-12-29 15:45 | Outpatient (RCR) | payer BC, SELFPAY ==
--- NOTE | 2023-10-23 09:40 | OPREHPOC ---
Outpatient Therapy Plan of Care This is a Multidisciplinary Plan of Care that may contain components documented by all disciplines (PT, OT, and ST.) PT Problem 1 PT Problem #1 Knowledge Deficit PT Goal 1 Goal 1. Patient will perform independent HEP 2. Patient will verbalize urge suppression strategies Target Visit 6 PT Problem 2 PT Problem #2 Impaired Strength PT Goal 1 Goal 1. Pelvic floor strength to 4/5 to decrease incontinence 2. Pelvic floor endurance to 10 seconds to decrease incontinence Target Visit 6 PT Problem 3 PT Problem #3 Impaired Functional ADLs PT Goal 1 Goal 1. Patient will report no more than 1 instance of incontinence per month Target Visit 6
--- NOTE | 2023-10-23 09:40 | PTOPEVAL1 ---
Assessment and note entered by Chelly Bradley DPT Evaluation Information Assessment Status Evaluation Subjective Information Pt reports she had surgery for prolapse and partial hysterectomy 4-5 years ago. Has recently started noticing some urinary urgency/incontinence . Voiding 4 times a day and 0-2 times at night. Can hold urge to void for a long period of time and then the intense urge and incontinence will occur when she is on the way to the toilet and it is happening most days of the week. Occasionally has to change underwear. Denies pain with urination. BM typically every day but is noticing more constipation recently, no pain. Denies history of significant pelvic pain. Pt has been 2 times and 2 vaginal deliveries, episiotomy with her first. Pt is menopausal. Patient goal: avoid incontinence Reported Pain Level Pain Score 0: Self Report Assessment PT Clinical Summary The patient is presenting to skilled therapy with a recent history of urge incontinence. She presents with decreased pelvic floor strength and endurance and will highly benefit from therapy to address her impairments and educate on urge suppression strategies in order to return to prior level of function. Plan of Care Interventions Manual Therapy,Neuro Re-education,Patient/ Caregiver Education,Therapeutic Activities, Therapeutic Exercise PT Services Indicated Yes Treatment Frequency and 1 time a week for 5 visits Duration These treatments will address the objective and functional deficits as defined above. The patient will be advanced safely and appropriately in order for the patient to progress towards his/her prior level of function. Additional exercises will be introduced and as well as a comprehensive home exercise program upon discharge, if needed, ?to ensure carryover of functional gains achieved in the clinic. This treatment plan has been reviewed and agreement upon by the patient.
--- NOTE | 2023-10-27 16:26 | OPREHPOC ---
Outpatient Therapy Plan of Care This is a Multidisciplinary Plan of Care that may contain components documented by all disciplines (PT, OT, and ST.) PT Problem 1 PT Problem #1 Knowledge Deficit PT Goal 1 Goal 1. Patient will perform independent HEP 2. Patient will verbalize urge suppression strategies Target Visit 6 PT Problem 2 PT Problem #2 Impaired Strength PT Goal 1 Goal 1. Pelvic floor strength to 4/5 to decrease incontinence 2. Pelvic floor endurance to 10 seconds to decrease incontinence Target Visit 6 PT Problem 3 PT Problem #3 Impaired Functional ADLs PT Goal 1 Goal 1. Patient will report no more than 1 instance of incontinence per month Target Visit 6 PT Problem 4 PT Problem #4 Pain PT Goal 1 Goal 1. Patient able to descend stairs with pain no higher than 2/10 Target Visit 8 PT Problem 5 PT Problem #5 Impaired Range of Motion PT Goal 1 Goal 1. Improve knee extension to 0 bilaterally Target Visit 8
--- NOTE | 2023-10-27 16:26 | PTOPEVAL1 ---
Assessment and note entered by Chelly Bradley DPT Evaluation Information Assessment Status Evaluation Subjective Information Pt reports bilateral knee pain in addition to her pelvic floor issues. Knee pain has been for years at this point. Highest pain 6-7/10 and lowest 0/10 . Pain increases with descending stairs, getting into her car and other bending activities like to get on the floor to clean. Has not been able to do full exercise routine due to pain. X-rays confirmed arthritis, and MRI or CT scan showed fluid . Patient goal: be able to get up and down stairs ( lives in a split level house) Reported Pain Level Pain Score 0: Self Report Assessment PT Clinical Summary The patient is presenting to skilled therapy with bilateral knee pain in addition to urge incontinence. She presents with decreased knee range of motion and decreased functional strength which are contributing to her pain and difficulty with activities like descending stairs. She will benefit from therapy to address these impairments in order to reduce pain and improve function. Plan of Care Interventions Electrical Stimulation,Gait Training,Hot Pack/Cold Pack,Manual Therapy,Neuro Re-education,Patient/ Caregiver Education,Therapeutic Activities, Therapeutic Exercise PT Services Indicated Yes Treatment Frequency and 1-2 times a week for 8 visits Duration These treatments will address the objective and functional deficits as defined above. The patient will be advanced safely and appropriately in order for the patient to progress towards his/her prior level of function. Additional exercises will be introduced and as well as a comprehensive home exercise program upon discharge, if needed, ?to ensure carryover of functional gains achieved in the clinic. This treatment plan has been reviewed and agreement upon by the patient.
--- NOTE | 2023-12-01 16:22 | OPREHPOC ---
Outpatient Therapy Plan of Care This is a Multidisciplinary Plan of Care that may contain components documented by all disciplines (PT, OT, and ST.) PT Problem 1 PT Problem #1 Knowledge Deficit PT Goal 1 Goal 1. Patient will perform independent HEP 2. Patient will verbalize urge suppression strategies Target Visit 6 Progress Met PT Problem 2 PT Problem #2 Impaired Strength PT Goal 1 Goal 1. Pelvic floor strength to 4/5 to decrease incontinence 2. Pelvic floor endurance to 10 seconds to decrease incontinence Target Visit 16 Progress Partially Met PT Problem 3 PT Problem #3 Impaired Functional ADLs PT Goal 1 Goal 1. Patient will report no more than 1 instance of incontinence per month Target Visit 16 Progress Partially Met PT Problem 4 PT Problem #4 Pain PT Goal 1 Goal 1. Patient able to descend stairs with pain no higher than 2/10 Target Visit 16 Progress Partially Met PT Problem 5 PT Problem #5 Impaired Range of Motion PT Goal 1 Goal 1. Improve knee extension to 0 bilaterally Target Visit 16 Progress Not Met
--- NOTE | 2023-12-01 16:22 | PTOPPROG ---
Assessment and note entered by Chelly Bradley DPT Evaluation Information Assessment Status Progress Subjective Information Highest knee pain in last week 3/10 and lowest 0/ 10. Report she is noticing decreased pain descending stairs at home. Reports her incontinence feels about the same. Does not think she had any incontinence in the last week, did have urgency but was able to make it to the toilet. Voiding 5 times a day on average . Does report she has not been doing her HEP consistently but has tried urge suppression techniques. Wants to focus on knee pain currently as the pain is affecting her more. Assessment PT Clinical Summary The patient has made some progress in therapy and reports decreased knee pain overall. She demonstrates improved walking speed and improved pelvic floor endurance. She continues to display gait impairments with stairs and report pain with descent and will benefit from further therapy to focus on knee pain in order to return to full function. Plan of Care Interventions Electrical Stimulation,Gait Training,Hot Pack/Cold Pack,Manual Therapy,Neuro Re-education,Patient/ Caregiver Education,Therapeutic Activities, Therapeutic Exercise PT Services Indicated Yes Treatment Frequency and 1-2 times a week for 8 visits Duration These treatments will address the objective and functional deficits as defined above. The patient will be advanced safely and appropriately in order for the patient to progress towards his/her prior level of function. Additional exercises will be introduced and as well as a comprehensive home exercise program upon discharge, if needed, ?to ensure carryover of functional gains achieved in the clinic. This treatment plan has been reviewed and agreement upon by the patient.
--- NOTE | 2023-12-18 10:51 | PCPTNOTE ---
Pt cancelled this afternoons appt because she just can't make it .
--- NOTE | 2024-01-07 14:24 | PCPTNOTE ---
Patient called to cancel due to work conflict.
--- NOTE | 2024-01-27 14:39 | PCPTNOTE ---
This treatment is being continued on visit number [id number]. Please see documentation on both accounts to view progress. Completed interventions, outcomes, and problems have been marked as Inactive to facilitate the copying of the Care plan routine for recurring accounts.
== END 2024-01-18 11:23 | disposition home or self-care (01) ==
LOC: ANHPT 15:45
PROVIDERS: PCP Family Medicine; Visit Provider Family Medicine
DX: N39.3 Stress incontinence (female) (male) (principal)
CPT/HCPCS: 97110; 97112; 97140; 97530

== ENCOUNTER 2024-01-28 08:40 | Outpatient (RCR) | payer BC, SELFPAY ==
--- NOTE | 2024-01-27 14:37 | PCPTNOTE ---
This treatment is being continued on visit number [id number]. Please see documentation on both accounts to view progress. Completed interventions, outcomes, and problems have been marked as Inactive to facilitate the copying of the Care plan routine for recurring accounts.
--- NOTE | 2024-01-27 16:09 | PTOPDC ---
Assessment and note entered by Chelly Bradley DPT Evaluation Information Assessment Status Discharge Subjective Information Highest pain 4/10 and lowest 0/10. Still has pain with descending stairs. Pt reports as her pain feels about the same due to difficulty coordinating work schedule with therapy appointments and feels comfortable being discharged to HEP today. Reported Pain Level Pain Score 0: Self Report Assessment PT Clinical Summary The patient has reached a plateau in progress at this time. She continues to report bilateral knee pain with descending stairs. She will be discharged from this therapy at this time with education to continue HEP and follow up with MD and/or PT as needed. Plan of Care PT Services Indicated No
== END 2024-03-07 14:15 | disposition home or self-care (01) ==
LOC: ANHPT 08:40
PROVIDERS: PCP Family Medicine; Visit Provider Family Medicine
DX: N39.3 Stress incontinence (female) (male) (principal)
CPT/HCPCS: 97140; 97530; 99199

== ENCOUNTER 2024-04-15 09:35 | Outpatient (CLI) | payer BC, SELFPAY ==
--- NOTE | ~2024-04-15 | CT_ITS ---
EXAMINATION: CT lung screening DATE: 04/15/2024 09:54 INDICATION: Z87.891 - Personal history of nicotine dependence TECHNIQUE: Computed tomography (CT) of the chest was performed without intravenous contrast. Addition al 3D reconstructions utilizing coronal maximum intensity projection (MIP) were performed. Automated exposure control and iterative reconstruction technique were employed. The dose-length product was 94 .31 mGy-cm. COMPARISON: 04/24/2023 FINDINGS: Mild emphysema with minimal biapical pleural-parenchymal scarring. There are few scattered <3 mm bila teral pulmonary nodules. No pneumonia, pulmonary edema or pleural effusion. Heart size is normal. No pericardial effusion. Thoracic aorta is normal in caliber. No pathologically enlarged thoracic lympha denopathy. Moderate thoracic spondylosis with minimal anterior wedging of a few mid thoracic vertebra l bodies. IMPRESSION: 1. Lung-RADS category 2: Benign appearance or behavior. Continue annual screening with noncontrast lo w-dose chest CT in 12 months. Reviewed, dictated and finalized at location B. IMPRESSION: 1. Lung-RADS category 2: Benign appearance or behavior. Continue annual screeni ng with noncontrast low-dose chest CT in 12 months.
== END 2024-04-15 09:36 ==
LOC: GOSHIMG 09:36
PROVIDERS: PCP Family Medicine; Visit Provider Physician Assistant
DX: Z12.2 Encounter for screening for malignant neoplasm of respiratory organs (principal); Z87.891 Personal history of nicotine dependence
CPT/HCPCS: 71271

== ENCOUNTER 2024-08-22 00:10 | Day surgery (SDC) | payer BC, SELFPAY ==
[2024-08-10 08:37] VITALS: BMI 23.6
[2024-08-22 09:13] VITALS: BP 105/69; PULSE 100; RESP 20; TEMP 36; O2SAT 100; BMI 22.1
[2024-08-22] MEDS: LACTATED RINGERS 1,000 ML 150 ML IV CONT (09:15)
--- NOTE | 2024-08-22 09:20 | WPDANESEPPF ---
Anes - Initial Pre Proc Eval Procedure: Operation Date: 08/22/24 10:00 Proposed Procedures p Screening Colonoscopy - Konrad Abreu MD Date/Time: 08/22/24 09:20 Surgeon: Konrad Abreu MD Pre Op Diagnosis: Neoplasm screening Patient Data Age: 49 Gender: F Height: 1.7 m Weight: 64 kg Last Vital Signs Temp 36.0 C L 08/22/24 09:13 Pulse 100 08/22/24 09:13 Resp 20 08/22/24 09:13 BP 105/69 08/22/24 09:13 Pulse Ox 100 08/22/24 09:13 O2 Del Method Room Air 08/22/24 09:13 Allergies Allergy/AdvReac Type Severity Reaction Status Date / Time hydrocodone Allergy Severe Itching, Verified 08/22/24 09:11 Nausea and Vomiting codeine Allergy Unknown Itching, Verified 08/22/24 09:11 Rash Home Medications Medication Instructions Recorded Confirmed Type omeprazole 40 mg capsule,delayed 40 mg PO .q a.m. #90 caps 07/23/23 08/10/24 Rx release albuterol sulfate 90 mcg/actuation 1 inh inhalation Q4H PRN shortness 08/06/23 08/10/24 Rx aerosol inhaler (ProAir HFA) of breath or wheezing 90 days #25.5 grams cetirizine 10 mg tablet 10 mg PO DAILY #100 tabs 06/07/24 08/10/24 Rx escitalopram oxalate 20 mg tablet 20 mg PO DAILY #90 tabs 07/26/24 08/10/24 Rx semaglutide (weight loss) 1 mg/0.5 1 mg subcut WEEKLY 08/10/24 08/22/24 History mL subcutaneous pen injector Patient hx anesthesia problems: none Family hx anesthesia problems: none Results Review: All pre-operative results and documents have been reviewed as part of the pre-operative evaluation. [facility] Past Medical History Medical History Actinic keratosis Asthma exacerbation Benign mole Left ureteral stone Skin mole Surgical History Surgical History History of bilateral oophorectomy (~02/18/19) History of cosmetic plastic surgery Mommy make over 2014 History of hysterectomy (~02/18/19) Status post laser lithotripsy of ureteral calculus Family History Family History Mother Diabetes mellitus Depression Grandparent Family history of malignant neoplasm of breast Social History Social History Smoking packs per day: 1 Smoking cigarettes per day: 20.0 Years smoked: 30 Smoking pack-years: 30.00 Smoking status: Heavy tobacco smoker Tobacco type: cigarettes Second hand tobacco smoke exposure: No Alcohol intake: current Alcohol use details: once a month Substance use: current Substance use type: marijuana Other substance usage details: daily smoking Last use: daily Do You Feel Safe in your Home?: Yes Lack of Transportation: No Lack of Food: Never True Current Housing: I Have Housing Concerned About Future Housing: No Difficulty Paying Gas/Electric Bills: No Difficulty Paying for Meds: No Currently Unemployed: No Education: Associate Degree Difficulty w/ Childcare or Family Care: No Living arrangements: with family Occupation/Education: occupation Gender identity (if verbalized by the patient): Female Spiritual care concerns: No Agree to blood products: Yes Anes - Eval Final PreProcedure Day of Procedure 08/22/24 09:20 Patient weight: normal Heart: regular rate and rhythm Lungs: clear to auscultation Airway: Mallampati scale class II Neurological: alert and oriented Last oral intake: >/= 8 hours ASA classification: III Emergent: no Anesthetic plan: proceed Anesthesia type and monitoring: general GIVS and standard monitoring Results Review: All pre-operative results and documents have been reviewed as part of the pre-operative evaluation. Informed Consent: The patient's anesthetic plan and its attendant risks and benefits were discussed with the patient/family/POA. Questions were solicited and answers provided to the satisfaction of the patient/family/POA.
--- NOTE | 2024-08-22 09:34 | PM.HPGS ---
History of Present Illness History of Present Illness Consent: Risks, benefits, and alternatives have been discussed and questions answered. Patient agrees to proceed with procedure. Chief complaint: Neoplasm screening Narrative: Amanda Ponce is a 49 year old female here for first screening colonoscopy Review of Systems Review of Systems: All systems reviewed & are unremarkable except as noted in HPI and below PMFSH Past Medical History Medical History (Updated 08/22/24 @ 09:37 by Konrad Abreu MD) Actinic keratosis Asthma exacerbation Benign mole Colon cancer screening Left ureteral stone Skin mole Surgical History Surgical History History of bilateral oophorectomy (~02/18/19) History of cosmetic plastic surgery Mommy make over 2014 History of hysterectomy (~02/18/19) Status post laser lithotripsy of ureteral calculus Family History Family History Mother Diabetes mellitus Depression Grandparent Family history of malignant neoplasm of breast Social History Social History Smoking packs per day: 1 Smoking cigarettes per day: 20.0 Years smoked: 30 Smoking pack-years: 30.00 Smoking status: Heavy tobacco smoker Tobacco type: cigarettes Second hand tobacco smoke exposure: No Alcohol intake: current Alcohol use details: once a month Substance use: current Substance use type: marijuana Other substance usage details: daily smoking Last use: daily Do You Feel Safe in your Home?: Yes Lack of Transportation: No Lack of Food: Never True Current Housing: I Have Housing Concerned About Future Housing: No Difficulty Paying Gas/Electric Bills: No Difficulty Paying for Meds: No Currently Unemployed: No Education: Associate Degree Difficulty w/ Childcare or Family Care: No Living arrangements: with family Occupation/Education: occupation Gender identity (if verbalized by the patient): Female Spiritual care concerns: No Agree to blood products: Yes Meds Home Medications and Allergies Home Medications Medication Instructions Recorded Confirmed Type omeprazole 40 mg capsule,delayed 40 mg PO .q a.m. #90 caps 07/23/23 08/10/24 Rx release albuterol sulfate 90 mcg/actuation 1 inh inhalation Q4H PRN shortness 08/06/23 08/10/24 Rx aerosol inhaler (ProAir HFA) of breath or wheezing 90 days #25.5 grams cetirizine 10 mg tablet 10 mg PO DAILY #100 tabs 06/07/24 08/10/24 Rx escitalopram oxalate 20 mg tablet 20 mg PO DAILY #90 tabs 07/26/24 08/10/24 Rx semaglutide (weight loss) 1 mg/0.5 1 mg subcut WEEKLY 08/10/24 08/22/24 History mL subcutaneous pen injector Allergies Allergy/AdvReac Type Severity Reaction Status Date / Time hydrocodone Allergy Severe Itching, Verified 08/22/24 09:11 Nausea and Vomiting codeine Allergy Unknown Itching, Verified 08/22/24 09:11 Rash Vital Signs Vital Signs - 24 hr 08/22/24 09:13 Temperature 96.8 F L Pulse Rate 100 Respiratory Rate 20 Blood Pressure 105/69 Pulse Oximetry 100 Oxygen Delivery Room Air Exam Const: General: comfortable and no acute distress HENMT: Face/Nose/Sinus: Normal nares present Eyes: General: appearance normal, both eyes and all related structures Neck: Neck: no JVD Resp: Auscultation: clear to auscultation bilaterally Cardio: Rate: regular rate Rhythm: regular rhythm GI: Inspection: non-distended GI Palp: Yes Soft to palpation Skin: General skin exam: normal color Neuro: General: gait normal Speech: normal speech Extrem: General: normal to inspection Psych: Mental Status: mental status grossly normal Assessment and Plan Assessment and plan (1) Colon cancer screening: Code(s): Z12.11 - Encounter for screening for malignant neoplasm of colon Status: Acute Assessment and Plan: colonoscopy
[2024-08-22 09:52] VITALS: BP 94/62; PULSE 81; RESP 23; O2SAT 97
[2024-08-22 10:02] VITALS: BP 94/61; PULSE 78; RESP 21; O2SAT 97
[2024-08-22 10:12] VITALS: BP 96/67; PULSE 74; RESP 14; O2SAT 100
== END 2024-08-22 10:18 | disposition home or self-care (01) ==
PROVIDERS: PCP Family Medicine; Visit Provider Internal Medicine Gastroenterology
PROC: 0DJD8ZZ Inspection of Lower Intestinal Tract, Via Natural or Artificial Opening Endoscopic (ICD-10-PCS; CPT 45378; principal; 2024-08-22 10:00)
DX: Z12.11 Encounter for screening for malignant neoplasm of colon (principal); D12.2 Benign neoplasm of ascending colon; K64.8 Other hemorrhoids; J45.909 Unspecified asthma, uncomplicated; L57.0 Actinic keratosis; F17.210 Nicotine dependence, cigarettes, uncomplicated; F12.90 Cannabis use, unspecified, uncomplicated; Z79.51 Long term (current) use of inhaled steroids; Z79.85 Long-term (current) use of injectable non-insulin antidiabetic drugs; Z98.890 Other specified postprocedural states; Z87.442 Personal history of urinary calculi; Z80.3 Family history of malignant neoplasm of breast
CPT/HCPCS: 45385; 88305; J2704; J7120

== ENCOUNTER 2025-04-28 13:25 | Outpatient (CLI) | payer BC, SELFPAY ==
--- NOTE | ~2025-04-28 | CT_ITS ---
CT Scan of the Chest without Contrast: Clinical Indication: Lung cancer screening, nicotine dependence Technique: Contiguous sections were acquired throughout the chest without intravenous contrast. Dose reduction technique was used on this scan by utilizing automated exposure control and iterative recon struction technique. The dose-length product (DLP) was 72.09 mGy-cm. COMPARISON: 04/15/2024 Findings: There is no evidence of any significant mediastinal, hilar or axillary lymphadenopathy. The mediastin al soft tissues appear normal. There is no evidence of pleural or pericardial effusion. The lungs are clear. No pulmonary nodules or infiltrates are noted. Images through the upper abdomen reveal no abnormalities. Impression: Lung RADS 1: Negative. 12 month follow-up screening CT advised. Reviewed, dictated and finalized at location . Impression: Lung RADS 1: Negative. 12 month follow-up screening CT advised.
--- OUTSIDE RECORDS SUMMARY | 2025-04-28 13:30 | XMS_ITS | Clinical Summary ---
Author Organization [facility] Address [address] [place] [address] Care Team Providers Care Insurance Auditor Name Role Phone Fifi Estevez MD Primary Care Provider [phone] Source Comments [facility],non-owned Affiliates and Associated Physician Practices is amultiple site organization consisting of ambulatory clinics and hospital sitesin [place], [place], [place] and [place]. This disclosure is being madepursuant to the Care Everywhere program and may not contain all information available regarding this patient. 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 Gender Identity Not on file Sexual Orientation Not on file Plan of Treatment Health Maintenance Due Date Last Done Comments COLOGUARD (AGES 45-75) - COL ON CA SCREENING 1974 COLON MONITORING 1974 COLONOSCOPY - COLON CA SCREENING 1974 CT COLONOGRAPHY - COLON CA SCREENING 1974 Colorectal Cancer Screening 1974 FIT - COLON CA SCREENING 1974 FLEX SIG - COLON CA SCREENING 1974 LIPID TESTING 1974 MAMMOGRAM 1974 HIV SCREENING 1989 HEPATITIS C SCREENING 03/13/1992 DTAP/TDAP/TD VACCINES (1 - Tdap) 1993 HEPATITIS B VACCINE (1 of 3 - 19+ 3-dose series) 1993 PAP SMEAR 1995 PNEUMOCOCCAL VACCINE 50+ (1 of 1 - PCV) 2024 ZOSTER VACCINE (1 of 2) 2024 COVID-19 VACCINE (1 - 2023-2 5 season) 2024 DEPRESSION SCREENING 10/19/2024 INFLUENZA VACCINE (#1) 2025 HIB VACCINE Aged Out No longer eligi ble based on patient's age to complete this topic HPV VACCINE Aged Out No longer eligi ble based on patient's age to complete this topic MENINGOCOCCAL (Group B) VACC INE SHARED DECISION-MAKING Aged Out No longer eligibl e based on patient's age to complete this topic MENINGOCOCCAL GROUPS A/C/Y/W VACCINE Aged Out No longer eligible b ased on patient's age to complete this topic Insurance [facility] SELF PAY NO INSURANCE Member Subscriber Plan / Payer (Ef fective for All Dates) Name:JadenAmanda watson Member ID:Not on file Relation to Subscriber:Not on file Name:GARLANDAMANDA Flaherty Subscriber ID:Not on file (Home) Address: [address] [place] [address] Payer ID:Not on file Group ID:Not on file Type:Self Pay Address: [place], [place] ANTHEM ANTHEM Member Subscriber Plan / Payer (Ef fective 2022-Present) Name:Amanda Ponce Relation to Subscriber:Spouse Name:LIS PONCE Date of :1971 Address: [address] [place] [address] Payer ID:[id number] (NAIC) Type:PPO Address: [id number] BCBS/BLUE BLUE [place]OSS BL[place] BS/BLUE [place]/BLUE [employer] [employer] [facility] [place] Member Subscriber Plan / Payer (Ef fective for All Dates) Name:Amanda Ponce Relation to Subscriber:Self Name:Amanda Ponce Payer ID:Not on file Type:PPO Address: [address] BS/BLUE [employer] [employer] [facility] [facility] [place] Member Subscriber Plan / Payer (Ef fective for All Dates) Name:Amanda Ponce Relation to Subscriber:Self Name:Amanda Ponce Payer ID:Not on file Type:PPO Address: [place] [id number] Care Teams Insurance Auditor Relationship Specialty Start Date End Date Fifi Estevez MD [address] [place] [id number] PCP - General 02/22/19
== END 2025-04-28 13:26 | disposition home or self-care (01) ==
PROVIDERS: PCP Family Medicine; Visit Provider Physician Assistant
DX: Z12.2 Encounter for screening for malignant neoplasm of respiratory organs (principal); Z87.891 Personal history of nicotine dependence
CPT/HCPCS: 71271